=== PATIENT | male | born 1950 | race Caucasian/White ===

== ENCOUNTER 2022-02-27 08:26 | Emergency (ER) | payer OTHER ==
[~2022-02-27] VITALS: Ht 180.3 cm; Wt 77.1 kg
--- NOTE | 2022-02-27 09:15 | NUR ---
Patient to ER bed TRIAGE to gown for evaluation. Side rails up.
--- NOTE | 2022-02-27 09:20 | NUR ---
ER at bedside examining patient.
--- NOTE | 2022-02-27 09:30 | NUR ---
PT C/O L BACK PAIN X MECH FALL
[2022-02-27] MEDS ORDERED: BACI15OI13 TP (09:37)
[2022-02-27] MEDS ORDERED: ACET-2634 PO (09:37)
--- NOTE | 2022-02-27 10:00 | NUR ---
Patient given written and verbal discharge instructions and verbalizes understanding. ER MD discussed with patient the results and treatment provided. Patient in stable condition. ID arm band removed. Rx of TYLENOL XSTRENGTH,BACITRACIN given. Patient educated on pain management and to follow up with PMD. Pain Scale 3. Opportunity for questions provided and answered. Medication side effect fact sheet provided.
== END 2022-02-27 10:00 | disposition home or self-care (01) ==
LOC: SED 08:26
DX: S30.0XXA Contusion of lower back and pelvis, initial encounter (principal); S20.312A Abrasion of left front wall of thorax, initial encounter; Z79.899 Other long term (current) drug therapy; W01.0XXA Fall on same level from slipping, tripping and stumbling without subsequent striking against object, initial encounter; Y93.89 Activity, other specified; Y92.89 Other specified places as the place of occurrence of the external cause; Y99.8 Other external cause status
CPT/HCPCS: 71045; 71100; 99284